=== PATIENT | male | born 1950 | race Caucasian/White ===

== ENCOUNTER → 2018-10-03 | Outpatient (CLI) | payer BC ==
[~2018-10-03] MED LIST: KEFLEX500 MG PO; MEDROL DOSEPAK4 MG PO; MOTRIN800 MG PO
== END | disposition home or self-care (01) ==
LOC: MRI 12:52
DX: M75.52 Bursitis of left shoulder (principal); M75.82 Other shoulder lesions, left shoulder; M19.012 Primary osteoarthritis, left shoulder